=== PATIENT | female | born 1990 | race American Indian/Alaskan Native ===

== ENCOUNTER 2017-03-01 16:22 | Emergency (ER) | payer SELFPAY ==
--- NOTE | 2017-03-01 17:51 | Emergency Department Report ---
Entered by TAD PETTIT, acting as scribe for HORACE MENDOZA PA. Chief Complaint: Urogenital-Female Stated Complaint: ABD PAIN/URINARY PAIN Time Seen by Provider: 03/01/17 17:35 - HPI History of Present Illness: 26 y/o female presents c/o abd pain that started 1 week ago. Sx include dysuria , nausea, right sided flank pain and back pain but denies fever, chills or vomiting. Pt notes she would like to have blood work drawn to be checked for an STD. - ROS Review of Systems: as noted in HPI - Exam Vital Signs: Vital Signs 03/01/17 17:02 Temperature 98.5 F Pulse Rate 61 Respiratory 16 Rate Blood Pressure 137/83 O2 Sat by Pulse 100 Oximetry Physical Exam: General: 26 year-old female in no acute distress. Well-developed, well- nourished. CV: Regular rate and rhythm. No murmurs rubs or gallops. Lungs: Clear to auscultation bilaterally. Abdomen: No tenderness to palpation. No guarding or rebound tenderness. Normal bowel sounds. Mini Neuro: Alert and oriented 3. MSE screening note: Focused history and physical exam performed. Due to findings the following was ordered: ED Disposition for MSE Condition: Stable This documentation as recorded by the scribe,TAD PETTIT,accurately reflects the service I personally performed and the decisions made by me,HORACE MENDOZA PA.
[2017-03-01 18:37] LABS: Bilirubin,Urine NEG (Negative); Blood,Urine NEG (Negative); Ketones,Urine TR mg/dL (Negative); Leukocyte Esterase,Urine SM (Negative); Mucus,Urine 2+ /HPF; Nitrite,Urine NEG (Negative); Protein,Urine <15 mg/dL mg/dL (Negative); Urobilinogen,Urine < 2.0 mg/dL (<2.0)
[2017-03-01 21:46] LABS: Alanine Aminotransferase 30 units/L (7-56); Albumin 4.3 g/dL (3.9-5); Albumin/Globulin Ratio 1.7 %; Alkaline Phosphatase 57 units/L (35-129); Anion Gap 24 mmol/L; BUN/Creatinine Ratio 14.44; Blood Urea Nitrogen 13 mg/dL (7-17); Carbon Dioxide 19 mmol/L (22-30); Chloride 99.4 mmol/L (98-107); Glucose 84 mg/dL (65-100); Lipase 16 units/L (13-60); Potassium 3.6 mmol/L (3.6-5.0); Sodium 139 mmol/L (137-145); Total Protein 6.8 g/dL (6.3-8.2)
[2017-03-01 22:03] LABS: Basophils % (Auto) 0.6 % (0.0-1.8); Eosinophils % (Auto) 1.4 % (0.0-4.3); Hematocrit 41.4 % (30.3-42.9); Hemoglobin 13.1 gm/dl (10.1-14.3); Mean Corpuscular HGB Conc 32 % (30-34); Mean Corpuscular Hemoglobin 27 pg (28-32); Mean Corpuscular Volume 87 fl (79-97); Platelet Count 317 K/mm3 (140-440); Red Blood Count 4.78 M/mm3 (3.65-5.03); Red Cell Distribution Width 14.1 % (13.2-15.2); White Blood Count 6.9 K/mm3 (4.5-11.0)
[2017-03-01] MEDS ORDERED: NACL ONE (23:44)
--- NOTE | 2017-03-02 00:14 | Emergency Department Report ---
ED Female HPI - General Chief complaint: Urogenital-Female Stated complaint: ABD PAIN/URINARY PAIN Time Seen by Provider: 03/01/17 17:35 Source: patient Mode of arrival: Ambulatory Limitations: No Limitations - History of Present Illness Initial comments: This is a 26 of them on the presents with pelvic pain, dysuria, polyuria, and urinary urgency for the past week. Patient denies any fever, chills, hematuria , chest pain or shortness of breath. Patient also complains of yellowish discharge. Patient stated she is concerned about sexual transmitted disease such as gonorrhea chlamydia. Patient denies new sexual partner but states that she is concerned about her boyfriend with a STD. Patient denies point tenderness of abdomen. Denies n/v. Patient denies any back pain. At this time the patient isn't toxic or ill in appearance. No signs of distress. Patient is well-nourished. MD Complaint: vaginal discharge, dysuria, pelvic pain, possible STD -: Gradual, week(s) (1) Radiation: non-radiating Severity: mild Severity scale (0 -10): 6 Quality: burning, aching Consistency: constant Improves with: none Worsens with: none Are you Now?: No Associated Symptoms: vaginal discharge, dysuria, other (pelvic pain). denies: vaginal bleeding, abdominal pain, nausea/vomiting, fever/chills, headaches, loss of appetite, hematuria, rash, seizure, shortness of breath, syncope, weakness - Related Data Previous Rx's Medication Instructions Recorded Last Taken Type Sulfamethoxazole/Trimethoprim 1 each PO BID 3 Days 03/02/17 Unknown Rx [Bactrim DS TAB] Allergies Allergy/AdvReac Type Severity Reaction Status Date / Time No Known Allergies Allergy Verified 03/01/17 23:49 ED Review of Systems ROS: Stated complaint: ABD PAIN/URINARY PAIN Other details as noted in HPI Constitutional: denies: chills, fever Eyes: denies: eye pain, eye discharge, vision change ENT: denies: ear pain, throat pain Respiratory: denies: cough, shortness of breath, wheezing Cardiovascular: denies: chest pain, palpitations Endocrine: no symptoms reported Gastrointestinal: denies: abdominal pain, nausea, vomiting, diarrhea, constipation, hematemesis, melena, hematochezia Genitourinary: urgency, dysuria, frequency, discharge. denies: hematuria, abnormal menses, dyspareunia Musculoskeletal: denies: back pain, joint swelling, arthralgia Skin: denies: rash, lesions Neurological: denies: headache, weakness, paresthesias Psychiatric: denies: anxiety, depression Hematological/Lymphatic: denies: easy bleeding, easy bruising ED Past Medical Hx - Medications Home Medications: Home Medications Medication Instructions Recorded Confirmed Last Taken Type Sulfamethoxazole/Trimethoprim 1 each PO BID 3 Days 03/02/17 Unknown Rx [Bactrim DS TAB] ED Physical Exam - General Limitations: No Limitations General appearance: alert, in no apparent distress - Head Head exam: Present: atraumatic, normocephalic - Eye Eye exam: Present: normal appearance, PERRL, EOMI - ENT ENT exam: Present: normal exam, normal orophraynx, mucous membranes moist, TM's normal bilaterally - Neck Neck exam: Present: normal inspection, full ROM. Absent: tenderness, meningismus, lymphadenopathy - Respiratory Respiratory exam: Present: normal lung sounds bilaterally. Absent: respiratory distress - Cardiovascular Cardiovascular Exam: Present: regular rate, normal rhythm. Absent: systolic murmur, diastolic murmur, rubs, gallop - GI/Abdominal GI/Abdominal exam: Present: soft, tenderness (pelvic region), normal bowel sounds. Absent: distended, guarding, rebound, rigid, diminished bowel sounds, hyperactive bowel sounds, hypoactive bowel sounds, organomegaly, mass, bruit, pulsatile mass, hernia - External exam: Present: normal external exam. Absent: erythema, swelling, lesions, lacerations, ecchymosis, bleeding Speculum exam: Present: erythema, cervical discharge Bi-manual exam: Present: normal bi-manual exam. Absent: cervical motion tendernes, adnexal tenderness, adnexal mass, uterine enlargement, uterine tenderness - Extremities Exam Extremities exam: Present: normal inspection, full ROM, normal capillary refill. Absent: tenderness, pedal edema, joint swelling - Back Exam Back exam: Present: normal inspection, full ROM. Absent: tenderness, CVA tenderness (R), CVA tenderness (L) - Neurological Exam Neurological exam: Present: alert, oriented X3, CN II-XII intact, normal gait - Psychiatric Psychiatric exam: Present: normal affect, normal mood - Skin Skin exam: Present: warm, dry, intact, normal color. Absent: rash ED Course Vital Signs 03/01/17 03/01/17 03/02/17 17:02 21:28 00:24 Temperature 98.5 F Pulse Rate 61 58 L Respiratory 16 18 18 Rate Blood Pressure 137/83 Blood Pressure 138/80 [Left] O2 Sat by Pulse 100 99 99 Oximetry 03/02/17 00:35 Temperature Pulse Rate 61 Respiratory 18 Rate Blood Pressure Blood Pressure 156/99 [Left] O2 Sat by Pulse 99 Oximetry ED Medical Decision Making - Lab Data Result diagrams: 03/01/17 21:17 03/01/17 21:17 - Medical Decision Making Ed course: 26-year-old female presents with urinary tract infection 1- patient received CT scan of the pelvic area. Results: There is a transit intussusception him mid small bowel without obstruction. There are stones and appendix with no acute evidence of appendicitis. A 10 mm right adnexal region which old be a hemorrhagic ovarian cyst. Dr. Gaona is aware of the CT findings and discharge instructions/plan of treatment. 2- CBC, BMP, UA, and qualitative obtained in the ED. 3- patient was instructed of the labs results and ct scan and agrees to the discharge treatment plan. SHe stated will follow up with her bpm solution architect as soon as possible. 4- I also instructed the patient to take full course of antibiotic as prescribed and follow up with your primary care doctor in 3-5 days 5- patient was also instructed to observe sinus symptoms worsening and to report back to emergency room. 6- at the time of discharge the patient doesnt seem toxic or ill in appearance. Patient agrees to discharge plan and treatment. No further questions noted by the patient. 7- patient received Rocephin 2050 mg IM and azithromycin 1 g. 8- patient was instructed to come back for results of gonorrhea Chlamydia 7 days. Critical care attestation.: If time is entered above; I have spent that time in minutes in the direct care of this critically ill patient, excluding procedure time. ED Disposition Clinical Impression: UTI (urinary tract infection) Qualifiers: Urinary tract infection type: site unspecified Hematuria presence: without hematuria Qualified Code(s): N39.0 - Urinary tract infection, site not specified Disposition: DISCHARGED TO HOME OR SELFCARE Is pt being admited?: No Does the pt Need Aspirin: No Condition: Stable Instructions: Urinary Tract Infection in Women (ED) Additional Instructions: Follow-up with your primary care doctor in 3-5 days If symptoms worsen report back to emergency room. Take full course of antibiotics as prescribed. Prescriptions: Sulfamethoxazole/Trimethoprim [Bactrim DS TAB] 1 each PO BID 3 Days Referrals: PRIMARY CARE, [Primary Care Provider] - 3-5 Days Forms: Work/School Release Form(ED)
[2017-03-02 00:36] VITALS: BP 156/99
[2017-03-02] MEDS ORDERED: ZITHROMAX PO ONE (01:04)
[2017-03-02] MEDS ORDERED: ROCEPHIN IM ONE (01:04)
[2017-03-02] MEDS ORDERED: XYLOCAINE 1% MPF 5 mL INFILTRATI ONE (01:04)
--- NOTE | 2017-03-02 01:34 | Cat Scan Report ---
FINAL REPORT PROCEDURE: CT ABDOMEN PELVIS W CON TECHNIQUE: Computerized axial tomography of the abdomen and pelvis was performed after the IV injection of iodinated nonionic contrast. HISTORY: pain during urination x 7 days COMPARISON: No prior studies are available for comparison. FINDINGS: Visualized lower thorax: No significant abnormality. Liver: Normal size and attenuation. Spleen: Normal size and attenuation. Gallbladder and biliary system: Normal. Pancreas: Normal. Adrenals: Normal. Kidneys: Normal. GI tract: There is transient intussusception of the mid small bowel without obstruction. There is no colonic obstruction or colitis. There are stones in the appendix. There is no specific evidence of appendicitis.. Lymph nodes and mesentery: Normal. Vasculature: Normal. Bladder: Normal. Reproductive organs: Uterus is unremarkable. There is an 18 millimeter density in the right adnexal region which could be a hemorrhagic ovarian cyst. There is surrounding free fluid. There is no specific evidence of malignancy or tubo-ovarian abscess. However, if indicated, pelvic ultrasound may be helpful.. Peritoneum: There is no free air. There is no adenopathy. Musculoskeletal structures: No significant abnormality. Other: None. IMPRESSION: There is transient intussusception of the mid small bowel without obstruction. There is no mass. There could be underlying lymphoid hyperplasia. There is no enteritis. There is no colonic obstruction or colitis. There are stones in the appendix. There is no specific evidence of appendicitis.. Uterus is unremarkable. There is an 18 millimeter density in the right adnexal region which could be a hemorrhagic ovarian cyst. There is surrounding free fluid. There is no specific evidence of malignancy or tubo-ovarian abscess. However, if indicated, pelvic ultrasound may be helpful.. There is no free air. There is no adenopathy.
== END 2017-03-02 02:03 | disposition home or self-care (01) ==
LOC: ED 16:22
DX: N39.0 Urinary tract infection, site not specified (principal)
CPT/HCPCS: 36415; 74177; 80053; 81001; 81025; 83690; 85025; 87210; 87591; 96372; 99284; J0696; Q9967

== ENCOUNTER 2018-02-25 09:13 | Emergency (ER) | payer MEDICAID ==
[2018-02-25 09:33] VITALS: BP 144/90
[2018-02-25 10:48] LABS: Amphetamine Screen,Urine PRESUMPTIVE NEGATIVE; Benzodiazepines Screen,Urine PRESUMPTIVE NEGATIVE; Cannabinoid Screen,Urine PRESUMPTIVE NEGATIVE; Methadone Screen,Urine PRESUMPTIVE NEGATIVE; Opiate Screen,Urine PRESUMPTIVE NEGATIVE
[2018-02-25 11:10] LABS: Cocaine Screen,Urine PRESUMPTIVE POSITIVE
[2018-02-25] MEDS ORDERED: ATIVAN PO ONE (12:12)
--- NOTE | 2018-02-25 12:12 | Emergency Department Report ---
ED General Adult HPI - General Chief complaint: Arrhythmia/Palpitations Stated complaint: CP Time Seen by Provider: 02/25/18 12:05 Source: patient Mode of arrival: Ambulatory Limitations: No Limitations - History of Present Illness Initial comments: pt states she feels heart is racing, feels " wired" feels weak, and hasnt slept after taking "ecstacy" tablet at midnight. No chest pain or difficulty breathing no visual or speech disturbance, -: Gradual Improves with: other (no pain just pounding states pt , occasional diffuse headache) - Related Data Previous Rx's Medication Instructions Recorded Last Taken Type Sulfamethoxazole/Trimethoprim 1 each PO BID 3 Days tablet 03/02/17 Unknown Rx [Bactrim DS TAB] Allergies Allergy/AdvReac Type Severity Reaction Status Date / Time No Known Allergies Allergy Verified 03/01/17 23:49 ED Review of Systems ROS: Stated complaint: CP Other details as noted in HPI Constitutional: denies: chills, fever Eyes: denies: eye pain, eye discharge, vision change ENT: denies: ear pain, throat pain Respiratory: denies: cough, shortness of breath, wheezing Cardiovascular: palpitations. denies: chest pain, syncope Endocrine: no symptoms reported Gastrointestinal: denies: abdominal pain, nausea, diarrhea Genitourinary: denies: urgency, dysuria, discharge Musculoskeletal: denies: back pain, joint swelling, arthralgia Skin: denies: rash, lesions Neurological: headache (mild, occasionl, " havnt slept" ). denies: weakness, paresthesias Psychiatric: denies: anxiety, depression Hematological/Lymphatic: denies: easy bleeding, easy bruising ED Past Medical Hx - Past Medical History Previous Medical History?: No Hx Hypertension: No Hx CVA: No Hx Heart Attack/AMI: No Hx Diabetes: No Hx Deep Vein Thrombosis: No Hx Pulmonary Embolism: No Hx of Cancer: No Hx Sickle Cell Disease: No Hx Headaches / Migraines: No Additional medical history: pt denies pmhx , - Surgical History Past Surgical History?: No - Family History Family history: no significant - Social History Smoking Status: Never Smoker Substance Use Type: Alcohol - Medications Home Medications: Home Medications Medication Instructions Recorded Confirmed Last Taken Type Sulfamethoxazole/Trimethoprim 1 each PO BID 3 Days tablet 03/02/17 Unknown Rx [Bactrim DS TAB] ED Physical Exam - General Limitations: No Limitations General appearance: alert, in no apparent distress - Head Head exam: Present: atraumatic, normocephalic - Eye Eye exam: Present: normal appearance - ENT ENT exam: Present: normal orophraynx, mucous membranes moist - Neck Neck exam: Present: normal inspection, full ROM. Absent: meningismus - Respiratory Respiratory exam: Present: normal lung sounds bilaterally. Absent: respiratory distress, rales, accessory muscle use - Cardiovascular Cardiovascular Exam: Present: regular rate, normal rhythm, normal heart sounds. Absent: bradycardia, tachycardia, irregular rhythm, systolic murmur, diastolic murmur, rubs, gallop - GI/Abdominal GI/Abdominal exam: Present: soft, normal bowel sounds. Absent: tenderness - Extremities Exam Extremities exam: Present: normal inspection - Back Exam Back exam: Present: normal inspection - Neurological Exam Neurological exam: Present: alert, oriented X3, CN II-XII intact. Absent: motor sensory deficit - Psychiatric Psychiatric exam: Present: normal affect, normal mood, anxious - Skin Skin exam: Present: warm, dry, intact, normal color. Absent: rash ED Course Vital Signs 02/25/18 09:27 Temperature 98.8 F Pulse Rate 88 Respiratory 18 Rate Blood Pressure 144/90 O2 Sat by Pulse 100 Oximetry ED Medical Decision Making - EKG Data EKG shows normal: sinus rhythm, ST-T waves (are normal no stemi or oschemic patterns) Rate: normal - EKG Data 02/25/18 13:13 nsr at 65, normal axis and intervals, no stemi, qtc = 410 ms - Differential Diagnosis i went to check on the pt and labs, pt was gone, nursing stated she eloped Critical Care Time: No Critical care attestation.: If time is entered above; I have spent that time in minutes in the direct care of this critically ill patient, excluding procedure time. ED Disposition Clinical Impression: Heart palpitations, Drug abuse Disposition: ELOPED Is pt being admited?: No Does the pt Need Aspirin: No Condition: Stable Referrals: LUCIANO KIRK MD [Primary Care Provider] - 3-5 Days
[2018-02-25] MEDS ORDERED: TYLENOL PO ONE (12:13)
== END 2018-02-25 13:10 | disposition left against medical advice (07) ==
LOC: ED 09:13
DX: R00.2 Palpitations (principal); F19.10 Other psychoactive substance abuse, uncomplicated
CPT/HCPCS: 80307; 93005; 93010